=== PATIENT | male | born 1980 | race Native Hawaiian/Other Pacific Islander ===

== ENCOUNTER 2017-01-01 19:03 | Emergency (ER) | payer SELFPAY ==
[~2017-01-01] VITALS: Ht 167.6 cm; Wt 68.0 kg
[2017-01-01] MEDS ORDERED: EPIPEN 2-P0.3 MG/0.3 IJ (20:39)
== END 2017-01-01 21:13 | disposition home or self-care (01) ==
LOC: ED 19:03
DX: T63.451A Toxic effect of venom of hornets, accidental (unintentional), initial encounter (principal); T63.441A Toxic effect of venom of bees, accidental (unintentional), initial encounter; T63.461A Toxic effect of venom of wasps, accidental (unintentional), initial encounter; Y92.9 Unspecified place or not applicable

== ENCOUNTER 2022-10-12 15:24 | Emergency (ER) | payer SELFPAY ==
[~2022-10-12] VITALS: Ht 167.6 cm; Wt 85.0 kg
[~2022-10-12 15:24] MED LIST: EPIPEN 2-P0.3 MG/0.3 IJ
[2022-10-12] MEDS ORDERED: KEFLEX 500 MG E2 CAP PO (15:42)
[2022-10-12 16:14] LABS: BASO % 0.3 % (0.0-1.0); EOS % 0.4 % (1.0-4.0); HEMATOCRIT 46.8 % (42.0-52.0); LYMPH # 1.5 10*3/uL (1.3-4.4); LYMPH % 20.4 % (27.0-41.0); MEAN CELL VOLUME 87.8 fl (80.0-94.0); MEAN CORPUSCULAR HGB 30.6 pg (27.0-31.0); MEAN CORPUSCULAR HGB CONC 34.8 g/dl (33.0-37.0); MEAN PLATELET VOLUME 8.8 fl (9.6-12.3); MONO % 13.3 % (3.0-9.0); NEUT # 4.7 10*3/uL (2.3-7.9); NEUT % 65.3 % (47.0-73.0); PLATELET COUNT AUTOMATED 244 10*3/uL (130-400); RED BLOOD COUNT 5.33 10*6/uL (4.50-5.90); RED CELL DISTRI WIDTH 11.9 % (0-14.5); WHITE BLOOD COUNT 7.2 10*3/uL (4.8-10.8)
[2022-10-12 16:38] LABS: ALKALINE PHOSPHATASE 112 U/L (46-116); BUN 7 mg/dl (9-23); CHLORIDE 100 mmol/L (98-107); POTASSIUM 3.4 mmol/L (3.4-5.1); SGPT/ALT 46 U/L (10-49); TOTAL PROTEIN 8.2 gm/dL (6.0-8.0)
[2022-10-12] MEDS ORDERED: SEPTDS PO (17:01)
== END 2022-10-12 17:05 | disposition home or self-care (01) ==
LOC: ED 15:24
PROVIDERS: Emergency Medicine
DX: L03.115 Cellulitis of right lower limb (principal)